=== PATIENT | female | born 1965 | race Caucasian/White ===

== ENCOUNTER → 2017-10-06 08:31 | Outpatient (CLI) | payer OTHER, SELFPAY ==
--- NOTE | 2017-10-06 08:35 | BI_ITS ---
MAMMOGRAPHY - BILATERAL SCREENING REASON FOR EXAM: Female, 52 years old. Routine annual screening examination. PERTINENT HISTORY: Mother with breast cancer. Prior bilateral breast reduction. 2 month history of tenderness in the lower aspect of the right breast. TECHNIQUE: Digital bilateral breast corinne (3D mammographic acquisition) in the CC and MLO projections. 2-D mediolateral oblique (MLO) and craniocaudad (CC) views of both breasts were obtained. CAD: Full Field Digital Mammography with Computer Added Detection was performed. COMPARISON: Comparison is made with prior study dated October 03, 2016 and September 05, 2015. FINDINGS: Breast Composition: There are scattered areas of fibroglandular density. There are no dominant masses or suspicious calcifications. No other significant abnormalities are identified. There has been no significant change since the prior study. BI/SCREENING MAMM (CAD), BILAT IMPRESSION: Stable bilateral screening mammogram. Yearly follow-up mammogram recommended. (A) ASSESSMENT CATEGORY: BIRADS Category 1: Negative. A letter regarding these results will be sent to the patient by the facility within 30 days. Approximately 10% of breast cancers are not detected by mammography. A normal mammogram should not delay biopsy of a clinically suspicious abnormality. [id number] Electronically Signed: Stalin Shelton MD at 12:46 EDT Tel [phone], Service support ,
== END ==
PROVIDERS: Family Provider Physician Assistant; PCP Physician Assistant; Visit Provider Obstetrics & Gynecology
DX: Z12.31 Encounter for screening mammogram for malignant neoplasm of breast (principal)
CPT/HCPCS: 77063; 77067

== ENCOUNTER → 2017-10-06 10:37 | Outpatient (CLI) | payer OTHER, SELFPAY ==
[2017-10-10 14:39] LABS: HPV Reflexed? NOT INDICATED
== END ==
PROVIDERS: Visit Provider Obstetrics & Gynecology
DX: Z12.4 Encounter for screening for malignant neoplasm of cervix (principal)
CPT/HCPCS: 88175; G0145

== ENCOUNTER 2018-09-18 05:32 | Day surgery (SDC) | payer OTHER, SELFPAY ==
[2018-09-18] VITALS (13 sets, daily range): BP systolic 83–141; BP diastolic 54–124; PULSE 77–89; RESP 11–18; TEMP 36.3–36.6; O2SAT 92–99; BMI 44.5
--- NOTE | 2018-09-18 06:11 | PCM.HP.STD ---
Problem List (1) Screening for intestinal cancer Status: Acute History of Present Illness Date of Admission: 09/18/18 The patient is a 53 year old F who presents for screening colonoscopy. She has never had a previous examination. She does not have any personal or family history of colon cancer or colon polyps. She has not had any acute change in her health. No bright red blood per rectum or melena. No change in bowel habits. She does have hypertension on oral medication. She denies history of DVT. Past Medical History Allergies No Known Allergies Allergy (Verified 09/17/18 15:52) Home Medications: Ambulatory Orders Medication Instructions Recorded Albuterol Inhaler [Ventolin Hfa 1 - 2 puff INHALATION Q4H PRN PRN 09/17/18 (SP)] Amoxicillin 2,000 mg PO PRN PRN 09/17/18 Meloxicam [Mobic] 15 mg PO DAILY 09/17/18 Ranitidine HCl [Zantac 75] 75 mg PO BID 09/17/18 Triamterene/Hydrochlorothiazid 1 ea PO DAILY 09/17/18 [Dyazide 37.5-25 Capsule] Smoking Status: Former smoker Review of Systems Constitutional: Denies: Anorexia HEENT: Denies: Difficulty Swallowing Cardiovascular: Denies: Chest Pain Respiratory: Denies: Cough Gastrointestinal: Denies: Abdominal Pain, Hematochezia, Melena Neurological: Denies: Balance problems Endocrine: Denies: Change in Body Habitus VTE Information - Inpt Only VTE Present on Admission: No Patient Problems: Active and Suspected Problems Screening for intestinal cancer (Acute) - Physical Exam General: Alert, Oriented x3, Cooperative, No apparent distress HEENT: Atraumatic Oral: Moist Mucosa Neck: Supple Lungs: Clear to auscultation, Normal air movement Cardiovascular: Regular rate, Regular Rhythm Abdomen: Bowel Sounds Present, Soft, Non Tender, Obese Extremities: No Calf Tenderness Psych/Mental Status: Normal Affect Vital Signs Temp Pulse Resp BP Pulse Ox 97.9 F 89 18 137/86 H 97 09/18/18 05:51 09/18/18 05:51 09/18/18 05:51 09/18/18 05:51 09/18/18 05:51 Oxygen Delivery Method Room Air Weight: 276 lb 0.3 oz Body Mass Index (BMI) 44.5 Laboratory Tests Past 24 Hrs 09/18/18 05:40 Urine Test Pending Assessment/Plan All Active Problems Screening for intestinal cancer (Acute) I am recommending the patient to screening colonoscopy with possible biopsy or polypectomy is indicated. She is aware of the technique, benefits, risks, alternatives. She presents via our open access program today. We will proceed as noted. Sean Grey M.D., F.A.C.S.
[2018-09-18 06:12] LABS: Internal QC Validated? YES +Cl - CLEAR BKGD; Pregnancy, Urine Negative Negative
--- NOTE | 2018-09-23 10:44 | OP.ENDO_ITS ---
09/23/2018 Cynthia Jimenez Re : Colonoscopy procedure for Mahsa Sandra Dear Barbara This procedure was performed on Tuesday, September 18, 2018. My impressions and recommendations are as follows: Impressions : - Non-thrombosed external hemorrhoids, non-thrombosed internal hemorrhoids and internal hemorrhoids that prolapse with straining, but spontaneously regress to the resting position (Grade II) found on digital rectal exam. - Diverticulosis in the entire examined colon. - The examination was otherwise normal. - No specimens collected. Recommendations : - Discharge patient to home. - Resume previous diet. - Continue present medications. - Repeat colonoscopy in 10 years for screening purposes. My findings are described in the full procedure note, which is enclosed. If I can be of further assistance, please feel free to contact me at Doctor phone number(s): Work: . Sincerely, Sean Grey MD 09/18/2018 7:01:24 AM This report has been signed electronically.
== END 2018-09-18 08:10 | disposition home or self-care (01) ==
LOC: EN 05:33 → AC 05:34
PROVIDERS: Anesthesiology; Family Provider Family Medicine; PCP Family Medicine; Referring Provider Surgery; Visit Provider Surgery
PROC: 0DJD8ZZ Inspection of Lower Intestinal Tract, Via Natural or Artificial Opening Endoscopic (ICD-10-PCS; CPT 45378; principal; 2018-09-18 06:25)
DX: Z12.11 Encounter for screening for malignant neoplasm of colon (principal); I10 Essential (primary) hypertension; K64.1 Second degree hemorrhoids; K57.30 Diverticulosis of large intestine without perforation or abscess without bleeding; Z87.891 Personal history of nicotine dependence; Z79.899 Other long term (current) drug therapy
CPT/HCPCS: 45378; 81025; J7120

== ENCOUNTER → 2018-12-11 | Outpatient (CLI) | payer OTHER, SELFPAY ==
[2018-09-18 05:51] VITALS: BMI 44.5
--- NOTE | 2018-12-11 07:43 | BI_ITS ---
MAMMOGRAPHY - BILATERAL SCREENING REASON FOR EXAM: Female, 53 years old. Routine annual screening examination. PERTINENT HISTORY: Mother with breast cancer. History of remote bilateral breast reduction surgery. TECHNIQUE: Digital bilateral breast maikol (3D mammographic acquisition) in the CC and MLO projections. 2-D mediolateral oblique (MLO) and craniocaudad (CC) views of both breasts were obtained. CAD: Full Field Digital Mammography with Computer Added Detection was performed. COMPARISON: Comparison is made with prior examination dated October 06, 2017 and October 03, 2016. FINDINGS: Breast Composition: There are scattered areas of fibroglandular density. There are no dominant masses or suspicious calcifications. Asymmetrical density in the deep upper lateral portion of the left breast. Correlation with ultrasound is recommended. No other significant abnormalities are identified. BI/SCREEN MAMM (CAD) W/MAIKOL BILAT IMPRESSION: Asymmetrical density in the deep upper lateral portion of the left breast as described. Correlation with ultrasound is recommended. ASSESSMENT CATEGORY: BIRADS Category 0: Incomplete. Need additional imaging evaluation. A letter regarding these results will be sent to the patient by the facility within 30 days. Approximately 10% of breast cancers are not detected by mammography. A normal mammogram should not delay biopsy of a clinically suspicious abnormality. [id number] Electronically Signed: Stalin Shelton, at 11:17 EDT , Service support ,
== END | disposition home or self-care (01) ==
LOC: OPBI 07:42
PROVIDERS: Family Provider Family Medicine; PCP Family Medicine; Referring Provider Obstetrics & Gynecology; Visit Provider Obstetrics & Gynecology
DX: Z12.31 Encounter for screening mammogram for malignant neoplasm of breast (principal)
CPT/HCPCS: 77063; 77067

== ENCOUNTER → 2018-12-16 | Outpatient (CLI) | payer OTHER, SELFPAY ==
[2018-09-18 05:51] VITALS: BMI 44.5
--- NOTE | 2018-12-16 14:46 | US_ITS ---
STUDY: ULTRASOUND BREAST - LEFT REASON FOR EXAM: Female, 53 years old. Abnormal screening mammogram. TECHNIQUE: Axial and longitudinal images of the LEFT breast were performed with a high resolution ultrasound transducer. COMPARISON: Comparison is made with prior mammogram dated December 11, 2018. FINDINGS: LEFT Breast: This 1.3 cm x 1.6 cm x 0.6 cm irregular hypoechoic solid nodule at the 3:00 position of the breast at 12 cm from nipple. A biopsy is recommended for further evaluation. US/Breast Limited Unilateral IMPRESSION: 1.3 cm x 1.6 cm x 0.6 cm hypoechoic irregular solid nodule at the 3:00 position breast at 12 cm from nipple as described. A biopsy is recommended. ASSESSMENT CATEGORY: BIRADS Category 4: Suspicious - Biopsy Should Be Considered. A letter regarding these results will be sent to the patient by the facility within 30 days. Electronically Signed: Stalin Shelton, at 9:49 EDT , Service support ,
== END | disposition home or self-care (01) ==
LOC: OPUS 14:44
PROVIDERS: Family Provider Family Medicine; PCP Family Medicine; Referring Provider Obstetrics & Gynecology; Visit Provider Obstetrics & Gynecology
DX: R92.2 Inconclusive mammogram (principal)
CPT/HCPCS: 76642

== ENCOUNTER → 2018-12-25 13:25 | Outpatient (CLI) | payer OTHER, SELFPAY ==
[2018-12-25 13:37] VITALS: BMI 44.5
== END ==
PROVIDERS: Family Provider Family Medicine; PCP Family Medicine; Referring Provider Surgery; Visit Provider Surgery
DX: R92.8 Other abnormal and inconclusive findings on diagnostic imaging of breast (principal)

== ENCOUNTER → 2018-12-25 | Outpatient (CLI) | payer OTHER, SELFPAY ==
--- NOTE | 2018-12-25 13:25 | BRBX_PTH ---
PATIENT: DIVINE LOUIS LOC: [facility] U#:[id number] AGE/SX: 53/F ROOM: RE12/25/[address]: Dr. Sean Grey MD : 1965 BED: DIS: 12/25/2018 SPEC #: [id number] RECD: 12/25/18 17:04 STATUS: HAY REPatsy #: [id number] DISHA: 12/25/18 13:[address]: Sean Grey DEPT: SURGICAL PATHOLOGY RECD BY: Paty Vines ENTERED: 12/28/18 09:36 SP TYPE: BREAST BX OTHR DR: Dr. Cynthia Jimenez MD Tissues: Left breast, NOS Procedures: Surgery Specimen Level IV HEADER OPERATION: Left breast biopsy PRE-OP DIAGNOSIS: Left breast abnormal ultrasound TISSUE SUBMITTED: Left breast tissue MICROSCOPIC DIAGNOSIS Left breast, core biopsy: Focal intraductal hyperplasia without atypia. Mild fibrocystic change. Focal Banal microcalcifications. No evidence of malignancy. AM:emiliano 12/29/18 MICROSCOPIC DESCRIPTION Slides are reviewed. GROSS DESCRIPTION Received in fixative is one container labeled with the patient's name and designated left breast. The specimen consists of multiple elongated fragments of fletcher-yellow fibroadipose tissue that in aggregate measure 2 x 0.2 x 0.1 cm. The entire specimen is submitted in one cassette. / SJ:emiliano 12/28/18 TC:5 CPT: 99799
[2018-12-25 13:37] VITALS: BMI 44.5
== END | disposition home or self-care (01) ==
LOC: LABSPEC 12-28 08:26
PROVIDERS: Family Provider Family Medicine; PCP Family Medicine; Referring Provider Surgery; Visit Provider Surgery
DX: R92.8 Other abnormal and inconclusive findings on diagnostic imaging of breast (principal)
CPT/HCPCS: 88305

== ENCOUNTER → 2018-12-25 | Outpatient (CLI) | payer OTHER, SELFPAY ==
[2018-12-25 13:37] VITALS: BMI 44.5
--- NOTE | 2018-12-25 14:13 | BI_ITS ---
MAMMOGRAPHY - UNILATERAL DIAGNOSTIC: LEFT BREAST REASON FOR EXAM: Female, 53 years old. Status post ultrasound-guided breast biopsy of a nodular density in the upper lateral portion of the left breast. PERTINENT HISTORY: Abnormal screening mammogram. TECHNIQUE: Digital unilateral breast corinne (3D mammographic acquisition) in the CC and MLO projections. 2-D mediolateral oblique (MLO) and craniocaudad (CC) views of both breasts were obtained. CAD: Full Field Digital Mammography with Computer Added Detection was performed. COMPARISON: Comparison is made with prior mammogram dated December 11, 2018 and prior ultrasound the left breast dated December 16, 2018. FINDINGS: Breast Composition: There are scattered areas of fibroglandular density. There are no dominant masses or suspicious calcifications. A tissue clip marker is seen within the nodular density in the upper lateral aspect of the left breast. No other significant abnormalities are identified. BI/DIAG MAMM W/CAD, UNILAT IMPRESSION: Status post ultrasound-guided breast biopsy. A tissue clip marker is seen at the biopsy site. ASSESSMENT CATEGORY: BIRADS Category 2: Benign. A letter regarding these results will be sent to the patient by the facility within 30 days. Approximately 10% of breast cancers are not detected by mammography. A normal mammogram should not delay biopsy of a clinically suspicious abnormality. Electronically Signed: Stalin Shelton, at 15:20 EDT , Service support ,
== END | disposition home or self-care (01) ==
LOC: OPBI 14:12
PROVIDERS: Family Provider Family Medicine; PCP Family Medicine; Referring Provider Surgery; Visit Provider Surgery
DX: R92.8 Other abnormal and inconclusive findings on diagnostic imaging of breast (principal)
CPT/HCPCS: 77065

== ENCOUNTER → 2019-07-16 08:43 | Outpatient (CLI) | payer OTHER, SELFPAY ==
[2018-12-25 13:37] VITALS: BMI 44.5
--- NOTE | 2019-07-16 08:44 | BI_ITS ---
MAMMOGRAPHY - UNILATERAL DIAGNOSTIC: LEFT BREAST REASON FOR EXAM: Female, 54 years old. Six-month follow-up for left breast biopsy. PERTINENT HISTORY: Mother with breast cancer. History of bilateral breast reduction surgery. Left ultrasound-guided breast biopsy. TECHNIQUE: Digital unilateral breast corinne (3D mammographic acquisition) in the CC and MLO projections. 2-D mediolateral oblique (MLO) and craniocaudad (CC) views of both breasts were obtained. CAD: Full Field Digital Mammography with Computer Added Detection was performed. COMPARISON: Comparison is made with prior study dated December 11, 2018 and December 25, 2018. FINDINGS: Breast Composition: There are scattered areas of fibroglandular density. There are no dominant masses or suspicious calcifications. A tissue clip marker is once again seen within a small nodular density in the upper lateral portion of the left breast. No other significant abnormalities are identified. There has been no significant change since the prior study. BI/DIAG MAMM W/CAD, UNILAT IMPRESSION: Stable unilateral diagnostic mammogram. One year follow-up mammogram recommended. (A) ASSESSMENT CATEGORY: BIRADS Category 2: Benign. A letter regarding these results will be sent to the patient by the facility within 30 days. Approximately 10% of breast cancers are not detected by mammography. A normal mammogram should not delay biopsy of a clinically suspicious abnormality. Electronically Signed: Stalin Shelton, at 11:19 EDT , Service support ,
== END ==
PROVIDERS: PCP Family Medicine; Referring Provider Surgery; Visit Provider Surgery
DX: R92.8 Other abnormal and inconclusive findings on diagnostic imaging of breast (principal); Z98.890 Other specified postprocedural states
CPT/HCPCS: 77061; 77065; G0279

== ENCOUNTER → 2019-12-29 16:02 | Outpatient (CLI) | payer OTHER, SELFPAY ==
[2018-12-25 13:37] VITALS: BMI 44.5
--- NOTE | 2019-12-29 16:04 | BI_ITS ---
MAMMOGRAPHY - BILATERAL SCREENING REASON FOR EXAM: Female, 54 years old. Routine annual screening examination. PERTINENT HISTORY: Mother with breast cancer. History of bilateral breast reduction surgery. TECHNIQUE: Digital bilateral breast maikol (3D mammographic acquisition) in the CC and MLO projections. 2-D mediolateral oblique (MLO) and craniocaudad (CC) views of both breasts were obtained. CAD: Full Field Digital Mammography with Computer Added Detection was performed. COMPARISON: Comparison is made with prior study dated 12/11/2018 and 10/06/2017. FINDINGS: Breast Composition: The breasts are heterogeneously dense, which may obscure small masses. There is a 7 mm x 5 mm well-defined nodule in the inferior medial aspect of the left breast. Correlation with ultrasound is recommended. A tissue clip marker is seen in the upper-outer quadrant of the left breast. This is unchanged. Stable small benign-appearing bilateral axillary lymph nodes. No other significant abnormalities are identified. BI/SCREEN MAMM (CAD) W/MAIKOL BILAT IMPRESSION: 7 mm x 5 mm well-defined nodule in the inferior medial aspect of the left breast as described. Correlation with ultrasound is recommended. ASSESSMENT CATEGORY: BIRADS Category 0: Incomplete. Need additional imaging evaluation. A letter regarding these results will be sent to the patient by the facility within 30 days. Approximately 10% of breast cancers are not detected by mammography. A normal mammogram should not delay biopsy of a clinically suspicious abnormality. [id number] Electronically Signed: Stalin Shelton, at 11:20 EDT , Service support ,
== END ==
PROVIDERS: Referring Provider Student in an Organized Health Care Education/Training Program; Visit Provider Student in an Organized Health Care Education/Training Program
DX: Z12.31 Encounter for screening mammogram for malignant neoplasm of breast (principal)
CPT/HCPCS: 77063; 77067

== ENCOUNTER → 2020-01-05 08:49 | Outpatient (CLI) | payer OTHER, SELFPAY ==
[2018-12-25 13:37] VITALS: BMI 44.5
--- NOTE | 2020-01-05 08:49 | US_ITS ---
STUDY: ULTRASOUND BREAST - LEFT REASON FOR EXAM: Female, 54 years old. Abnormal screening mammogram. TECHNIQUE: Axial and longitudinal images of the LEFT breast were performed with a high resolution ultrasound transducer. # OF IMAGES: 13 COMPARISON: Comparison is made with prior mammogram dated 12/29/2019 and prior ultrasound of the left breast dated 12/16/2018. FINDINGS: LEFT Breast: The inferior medial quadrant of the left breast was examined by ultrasound. There is a 6 mm x 6 mm x 5 mm well-defined hypoechoic solid nodule at the 9 o''clock position of the breast at 4 cm from the nipple. A biopsy is recommended. US/Breast Limited Unilateral IMPRESSION: The mammographic abnormality corresponds to a 6 mm x 6 mm x 5 mm well-defined hypoechoic solid nodule at the 9 o''clock position of the breast at 4 cm from the nipple. A biopsy is recommended. ASSESSMENT CATEGORY: BIRADS Category 4: Suspicious - Biopsy Should Be Considered. A letter regarding these results will be sent to the patient by the facility within 30 days. Electronically Signed: Stalin Shelton, at 14:55 EDT , Service support ,
== END ==
PROVIDERS: Referring Provider Student in an Organized Health Care Education/Training Program; Visit Provider Student in an Organized Health Care Education/Training Program
DX: N63.20 Unspecified lump in the left breast, unspecified quadrant (principal)
CPT/HCPCS: 76642

== ENCOUNTER → 2020-01-10 15:20 | Outpatient (CLI) | payer OTHER, SELFPAY ==
[2020-01-10 14:59] VITALS: BMI 46.0
--- NOTE | 2020-01-10 15:20 | BRBX_PTH ---
PATIENT: DIVINE LOUIS LOC: [facility] U#:[id number] AGE/SX: 59/F ROOM: RE01/10/[address]: Dr. Sean Grey MD : 1965 BED: DIS: SPEC #: [id number] RECD: 01/10/20 16:03 STATUS: HAY HERVE #: [id number] DISHA: 01/10/20 15:[address]: Sean Grey DEPT: SURGICAL PATHOLOGY RECD BY: Paty Vines ENTERED: 01/11/20 13:00 SP TYPE: BREAST BX OTHR DR: No Primary Care Phys Tissues: Left breast, NOS Procedures: Surgery Specimen Level IV HEADER OPERATION: Left breast biopsy PRE-OP DIAGNOSIS: Abnormal left breast ultrasound TISSUE SUBMITTED: Left breast tissue MICROSCOPIC DIAGNOSIS Left breast, core biopsy: Nonproliferative fibrocystic change. No evidence of malignancy. AM:emiliano 10/21/20 MICROSCOPIC DESCRIPTION Slides are reviewed. GROSS DESCRIPTION Received in fixative is one container labeled with the patient name and designated left breast. The specimen consists of multiple elongated fragments of fletcher soft tissue that in aggregate measure 1.5 x 0.1 x 0.1 cm. The entire specimen is submitted in one cassette. / SJ:rg 01/11/20 TC:5 CPT: 14114
== END ==
PROVIDERS: Visit Provider Surgery
DX: R92.8 Other abnormal and inconclusive findings on diagnostic imaging of breast (principal)
CPT/HCPCS: 88305

== ENCOUNTER → 2020-12-29 06:56 | Outpatient (CLI) | payer OTHER, SELFPAY ==
--- NOTE | 2020-12-29 07:12 | BI_ITS ---
MAMMOGRAPHY - BILATERAL SCREENING 3-D TOMOSYNTHESIS REASON FOR EXAM: Female, 55 years old. SCREENING PERTINENT HISTORY: No significant family history. TECHNIQUE: 2-D mammograms and 3-D Tomosynthesis of the breast (s) were performed. CAD was performed. COMPARISON: 12/29/2019 FINDINGS: The breast composition is heterogeneously dense that can obscure small breast masses. Scattered benign calcifications are seen. No dominant mass right breast. 5 mm oval circumscribed equal density mass in the lower inner quadrant of the left breast at posterior depth and focal compression views recommended for further evaluation. No suspicious calcifications.. No architectural distortion is identified. There is no skin thickening or retraction. BI/SCRN MAMM (CAD)W/MAIKOL BILAT IMPRESSION: 5 mm oval circumscribed equal density mass in the lower inner quadrant left breast at posterior depth and focal compression views are recommended for further evaluation. ASSESSMENT CATEGORY: BIRADS Category 0: Incomplete. Need additional imaging evaluation as above. A letter regarding these results will be sent to the patient by the facility within 30 days. FOLLOW UP RECOMMENDATION: Additional imaging recommended as above. (E) Approximately 10% of breast cancers are not detected by mammography. A normal mammogram should not delay biopsy of a clinically suspicious abnormality. Electronically Signed: Obdulio Celeste MD at 8:54 EDT Tel , Service support ,
== END ==
DX: Z12.31 Encounter for screening mammogram for malignant neoplasm of breast (principal)
CPT/HCPCS: 77063; 77067

== ENCOUNTER → 2021-01-02 08:49 | Outpatient (CLI) | payer OTHER, SELFPAY ==
--- NOTE | 2021-01-02 09:22 | BI_ITS ---
MAMMOGRAPHY - UNILATERAL DIAGNOSTIC: LEFT BREAST REASON FOR EXAM: Female, 55 years old. Abnormal screening mammogram. PERTINENT HISTORY: Non-contributory. TECHNIQUE: Compression spot views of the left breast were obtained. CAD: Full Field Digital Mammography with Computer Added Detection was performed. COMPARISON: Comparison is made with prior mammogram dated 12/29/2020. FINDINGS: Breast Composition: There are scattered areas of fibroglandular density. Persistent 4 mm well-defined nodule in the lower inner quadrant of the left breast. Correlation with ultrasound is recommended. No other significant abnormalities are identified. BI/DIAG MAMM W/CAD, UNILAT IMPRESSION: Persistent 4 mm well-defined nodule in the inferior medial portion of the left breast. Correlation with ultrasound is recommended. ASSESSMENT CATEGORY: BIRADS Category 0: Incomplete. Need additional imaging evaluation. A letter regarding these results will be sent to the patient by the facility within 30 days. Approximately 10% of breast cancers are not detected by mammography. A normal mammogram should not delay biopsy of a clinically suspicious abnormality. Electronically Signed: Stalin Shelton MD at 12:38 EDT , Service support ,
--- NOTE | 2021-01-02 09:22 | US_ITS ---
STUDY: ULTRASOUND BREAST - LEFT REASON FOR EXAM: Female, 55 years old. Abnormal mammogram. TECHNIQUE: Axial and longitudinal images of the LEFT breast were performed with a high resolution ultrasound transducer. # OF IMAGES: 37 COMPARISON: Comparison is made with prior mammogram done earlier in the day. Comparison is also made with prior ultrasound of the left breast dated 01/05/2020. FINDINGS: LEFT Breast: Once again, there is a 5 mm x 5 mm x 4 mm well-defined hypoechoic solid nodule at the 8 o''clock position the breast at 3 cm from nipple. This is essentially unchanged as compared to prior study. Biopsy recommended. US/Breast Limited Unilateral IMPRESSION: Stable 5 mm x 5 mm x 4 mm well-defined hypoechoic solid nodule as described. A biopsy is recommended. ASSESSMENT CATEGORY: BIRADS Category 4: Suspicious - Biopsy Should Be Considered. A letter regarding these results will be sent to the patient by the facility within 30 days. Electronically Signed: Stalin Shelton MD at 13:09 EDT , Service support ,
== END ==
DX: R92.8 Other abnormal and inconclusive findings on diagnostic imaging of breast (principal)
CPT/HCPCS: 76642; 77065

== ENCOUNTER → 2021-01-08 11:22 | Outpatient (CLI) | payer OTHER, SELFPAY ==
--- NOTE | 2021-01-08 11:48 | PCM.HP.BLA ---
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 Is patient in pain?: No Allergies No Known Allergies Allergy (Verified 01/05/21 12:05) Medications albuterol sulfate 1 - 2 puff INHALATION Q4H PRN PRN 09/17/18 [History Confirmed 01/05/21] meloxicam 15 mg PO DAILY 09/17/18 [History Confirmed 01/05/21] triamterene-hydrochlorothiazid 1 ea PO DAILY 09/17/18 [History Confirmed 01/05/21] fluticasone propionate 50 mcg/actuation nasal spray,suspension 1 spray INTRANASAL DAILY 12/22/18 [History Confirmed 01/05/21] multivitamin 1 cap PO DAILY 12/22/18 [History Confirmed 01/05/21] Is last menstrual period known: No Post menopausal: Yes Patient : No PFSH Medical History Abnormal mammogram of left breast Abnormal ultrasound of breast Asthma HTN (hypertension) Surgical History History of colonoscopy History of left breast biopsy (~11/2018) History of umbilical hernia repair S/P section Status post breast reduction Status post right knee replacement Family History Mother Breast cancer dx age 48 Father Heart disease Social History Smoking Status: Former smoker alcohol intake: current alcohol intake frequency: a few times a month HPI HPI HPI: DIVINE LOUIS, is a 55 F who presents to the office today for ongoing breast care evaluation. Her most recent mammogram and ultrasound identified a 5 x 5 x 4 mm well-defined hypoechoic solid nodule left breast 8 o'clock position +3 cm. BI-RADS Category 4. As noted in previous notes below she has had previous breast biopsies that similarly were benign. 55-year-old female. G3, . Menarche at age 14. First child was born when she was 26. She did breast-feed. Family history notable for mother with breast cancer on 2 different occasions. January 02, 2021 MAMMOGRAPHY - UNILATERAL DIAGNOSTIC: LEFT BREAST REASON FOR EXAM: Female, 55 years old. Abnormal screening mammogram. PERTINENT HISTORY: Non-contributory. TECHNIQUE: Compression spot views of the left breast were obtained. CAD: Full Field Digital Mammography with Computer Added Detection was performed. COMPARISON: Comparison is made with prior mammogram dated 12/29/2020. FINDINGS: Breast Composition: There are scattered areas of fibroglandular density. Persistent 4 mm well-defined nodule in the lower inner quadrant of the left breast. Correlation with ultrasound is recommended. No other significant abnormalities are identified. BI/DIAG MAMM W/CAD, UNILAT IMPRESSION: Persistent 4 mm well-defined nodule in the inferior medial portion of the left breast. Correlation with ultrasound is recommended. ASSESSMENT CATEGORY: BIRADS Category 0: Incomplete. Need additional imaging evaluation. A letter regarding these results will be sent to the patient by the facility within 30 days. Approximately 10% of breast cancers are not detected by mammography. A normal mammogram should not delay biopsy of a clinically suspicious abnormality. Electronically Signed: Stalin Shelton MD at 12:38 EDT , Service support , January 02, 2021 STUDY: ULTRASOUND BREAST - LEFT REASON FOR EXAM: Female, 55 years old. Abnormal mammogram. TECHNIQUE: Axial and longitudinal images of the LEFT breast were performed with a high resolution ultrasound transducer. # OF IMAGES: 37 COMPARISON: Comparison is made with prior mammogram done earlier in the day. Comparison is also made with prior ultrasound of the left breast dated 01/05/2020. FINDINGS: LEFT Breast: Once again, there is a 5 mm x 5 mm x 4 mm well-defined hypoechoic solid nodule at the 8 o''clock position the breast at 3 cm from nipple. This is essentially unchanged as compared to prior study. Biopsy recommended. US/Breast Limited Unilateral IMPRESSION: Stable 5 mm x 5 mm x 4 mm well-defined hypoechoic solid nodule as described. A biopsy is recommended. ASSESSMENT CATEGORY: BIRADS Category 4: Suspicious - Biopsy Should Be Considered. A letter regarding these results will be sent to the patient by the facility within 30 days. Electronically Signed: Stalin Shelton MD at 13:09 EDT , Service support , My previous notes from January 10, 2020 reflect the following HPI: DIVINE LOUIS, is a 54 F who presents to the office today for surgical consultation regarding an abnormal left mammogram and breast ultrasound. 1 year ago I assisted her with her left breast 3 o'clock position +12 cm lesion which on ultrasound biopsy ended up being benign. On January 04 left breast ultrasound shows a 6 x 6 x 5 mm hypoechoic solid nodule 9 o'clock position +4 cm. This is in the opposite location of the left breast. She is remained asymptomatic. Her screening mammography of December 29, 2019 also performed at the [facility] did not detect any focal findings on the right. It demonstrated the small lesion medial left. Approximately 2004 is when the patient had breast reduction surgery. My previous notes reflect the following. My previous notes from a year ago reflect the following. I performed an ultrasound-guided needle core biopsy left breast 3 o'clock position +12 cm. Pathology was benign and confirmatory mammogram demonstrated the clip to be in good position. December 25, 2018 Ultrasound-guided needle core biopsy of the left breast 3 o'clock position +12 cm Left breast, core biopsy:Focal intraductal hyperplasia without atypia.Mild fibrocystic change.Focal Banal microcalcifications.No evidence of malignancy Exam Chest Other: Bilateral breasts demonstrate post reduction incisions. They are well matured from 17 years prior. Diffuse tenderness no focally concerning masses. No axillary clavicular adenopathy Assessment and Plan Assessment and Plan (1) Abnormal ultrasound of breast: Status: Acute (2) Abnormal mammogram of left breast: Status: Acute Plan - Dr. Sean Grey MD: I did attempt to do an ultrasound-guided needle core biopsy lower inner left breast lesion. Informed consent was obtained the breast was prepped I used ultrasound I used 1% lidocaine I even advance the 40-gauge Monopty needle however I was not comfortable with the angle of approach did not feel I can get clean access to the lesion without potentially interfering with the chest wall is a backstop. I aborted the procedure. Little Steri-Strip Telfa applied. We will subsequently arrange for a stereotactic needle core lower inner left breast biopsy. She is always had her previous biopsies done with ultrasound. She is agreeable to scheduling and proceeding as noted. Sean Grey M.D., F.A.C.S. I have re-examined the patient. There are no clinical changes since date of exam.
--- NOTE | 2021-01-08 12:20 | BRBX_PTH ---
PATIENT: DIVINE LOUIS LOC: [facility] U#:[id number] AGE/SX: 59/F ROOM: RE01/08/[address]: Dr. Sean Grey MD : 1965 BED: DIS: SPEC #: [id number] RECD: 01/08/21 13:13 STATUS: HAY HERVE #: [id number] DISHA: 01/08/21 12:[address]: Sean Grey DEPT: SURGICAL PATHOLOGY RECD BY: Macy Ibanez ENTERED: 01/08/21 13:44 SP TYPE: BREAST BX OTHR DR: No Primary Care Phys Tissues: Left breast, NOS Procedures: Surgery Specimen Level IV HEADER OPERATION: Left breast stereotactic needle core biopsy PRE-OP DIAGNOSIS: 5 x 5 x 4 mm density TISSUE SUBMITTED: Left breast ISCHEMIC TIME: 1 minute FIXATION TIME: 7 hours MICROSCOPIC DIAGNOSIS Left breast, stereotactic needle core biopsy: Fragments of fibroadipose tissue with focal minimal chronic inflammation and a minute non-necrotizing granuloma formation. Negative for atypia or malignancy. See comment. SHAREE:emiliano 01/09/2021 COMMENT Breast tissue is not identified in the specimen. Correlation with clinical, radiologic findings and appropriate follow up are necessary. Please make reference to previous specimens ([id number]) left breast, core biopsy with diagnosis of ?focal intraductal hyperplasia without atypia and mild fibrocystic changes? and ([id number]) left breast, core biopsy with diagnosis of ?nonproliferative fibrocystic change.? MICROSCOPIC DESCRIPTION Slides are reviewed. GROSS DESCRIPTION Received is one container labeled with the patient's name and not further designated. The specimen consists of multiple irregular and elongated fragments of yellow-fletcher soft tissue that in aggregate measure 5 x 3 x 0.2 cm. The specimen is totally submitted in two cassettes. / AM:emiliano 01/08/21 TC:3 CPT: 52157
--- NOTE | 2021-01-08 12:31 | PCM.OPRPT ---
Problems Associated Problem List Diagnoses (1) Abnormal mammogram of left breast: Report of Operation Date of Procedure: 01/08/21 Pre-Operative Diagnosis: Density lower inner left breast Post-Operative Diagnosis: Same Surgery/Procedure Performed:: Stereotactic needle core biopsy lower inner left breast Description of Surgical Findings:: Timeout and informed consent was obtained. The patient was taken the mammogram suite. She was placed prone on the table. The left breast was placed in the medial lateral view. Several images were required until what was felt to be the density was identified. Stereotactic images were obtained. Digital information was obtained on a single target site after I swapped the 0 degree image for the second image. The breast was prepped with Betadine. 1% lidocaine was used as a local anesthetic. Total 10 cc was used. A small stab incision was created. An 8 gauge resolved needle was advanced to prefire depth. Prefire films were obtained. The density already much less specific. The device was fired. 10 cores were obtained. A small dog bone marking clip was left in place. On fast view demonstrated positioning with no evidence of residual density. She was released from the device and pressure was held for hemostasis. The specimens were immediately transferred to formalin for analysis. She tolerated the procedure well no apparent complication. Subsequent follow-up CBC and mediolateral views were obtained. Sean Grey M.D., F.A.C.S. Surgeon: Sean Grey Type of Anesthesia: Local
== END ==
PROVIDERS: Referring Provider Surgery; Visit Provider Surgery
DX: R92.8 Other abnormal and inconclusive findings on diagnostic imaging of breast (principal)
CPT/HCPCS: 19081; 88305; J7050

== ENCOUNTER → 2022-01-03 | Outpatient (CLI) | payer OTHER, SELFPAY ==
--- NOTE | 2022-01-03 07:51 | BI_ITS ---
MAMMOGRAPHY - BILATERAL SCREENING REASON FOR EXAM: Female, 56 years old. Routine annual screening examination. PERTINENT HISTORY: Mother with breast cancer. Aunt with breast cancer. Prior left ultrasound guided and stereotactic biopsy. Prior bilateral breast reduction surgery. TECHNIQUE: Digital bilateral breast maikol (3D mammographic acquisition) in the CC and MLO projections. 2-D mediolateral oblique (MLO) and craniocaudad (CC) views of both breasts were obtained. CAD: Full Field Digital Mammography with Computer Added Detection was performed. COMPARISON: Comparison is made with prior study 12/29/2020 and 01/02/2021. FINDINGS: Breast Composition: There are scattered areas of fibroglandular density. There are no dominant masses or suspicious calcifications. A tissue clip marker is seen in the upper lateral portion of the left breast as well as in the inferior deep medial portion of the left breast. This is new as compared to prior study. Minimal increased markings are seen in the inferior medial portion of the breast at the site of the biopsy. No other significant abnormalities are identified. There has been no significant change since the prior study. BI/SCRN MAMM (CAD)W/MAIKOL BILAT IMPRESSION: Stable bilateral screening mammogram. Yearly follow-up mammogram recommended. (A) ASSESSMENT CATEGORY: BIRADS Category 2: Benign. A letter regarding these results will be sent to the patient by the facility within 30 days. Approximately 10% of breast cancers are not detected by mammography. A normal mammogram should not delay biopsy of a clinically suspicious abnormality. [id number] Electronically Signed: Stalin Shelton MD at 9:10 EDT ,
== END | disposition home or self-care (01) ==
LOC: OPBI 07:50
PROVIDERS: Visit Provider Surgery
DX: Z12.31 Encounter for screening mammogram for malignant neoplasm of breast (principal); Z80.3 Family history of malignant neoplasm of breast
CPT/HCPCS: 77063; 77067

== ENCOUNTER → 2022-11-28 | Outpatient (CLI) | payer OTHER, SELFPAY ==
--- NOTE | 2022-11-28 11:40 | BI_ITS ---
MAMMOGRAPHY - BILATERAL SCREENING REASON FOR EXAM: Female, 57 years old. Routine annual screening examination. PERTINENT HISTORY: Mother with breast cancer. Aunt with breast cancer. History of prior bilateral breast reduction surgery and left stereotactic breast biopsy. TECHNIQUE: Digital bilateral breast maikol (3D mammographic acquisition) in the CC and MLO projections. 2-D mediolateral oblique (MLO) and craniocaudad (CC) views of both breasts were obtained. CAD: Full Field Digital Mammography with Computer Added Detection was performed. COMPARISON: Comparison is made with prior study of January 03, 2022 and January 02, 2021. FINDINGS: Breast Composition: There are scattered areas of fibroglandular density. There are no dominant masses or suspicious calcifications. A tissue clip marker is seen in the upper outer aspect of the left breast as well as in the slightly inferior medial aspect of the left breast. Stable small benign-appearing bilateral axillary No other significant abnormalities are identified. There has been no significant change since the prior study. BI/SCRN MAMM (CAD)W/MAIKOL BILAT IMPRESSION: Stable bilateral screening mammogram. Yearly follow-up mammogram recommended. (A) ASSESSMENT CATEGORY: BIRADS Category 2: Benign. A letter regarding these results will be sent to the patient by the facility within 30 days. Approximately 10% of breast cancers are not detected by mammography. A normal mammogram should not delay biopsy of a clinically suspicious abnormality. [id number] Electronically Signed: Stalin Shelton MD at 13:42 EDT ,
== END | disposition home or self-care (01) ==
LOC: OPBI 11:39
PROVIDERS: Referring Provider Surgery; Visit Provider Surgery
DX: Z12.31 Encounter for screening mammogram for malignant neoplasm of breast (principal)
CPT/HCPCS: 77063; 77067

== ENCOUNTER → 2024-02-23 | Outpatient (CLI) | payer OTHER, SELFPAY ==
--- NOTE | 2024-02-23 08:07 | BI_ITS ---
MAMMOGRAPHY - BILATERAL SCREENING REASON FOR EXAM: Female, 58 years old. Routine annual screening examination. PERTINENT HISTORY: Mother with breast cancer. Aunt with breast cancer. History of prior bilateral breast reduction surgery as well as left stereotactic and left ultrasound-guided breast biopsies. TECHNIQUE: Digital bilateral breast maikol (3D mammographic acquisition) in the CC and MLO projections. 2-D mediolateral oblique (MLO) and craniocaudad (CC) views of both breasts were obtained. CAD: Full Field Digital Mammography with Computer Added Detection was performed. COMPARISON: Comparison is made with prior study November 28, 2022 and January 03, 2022. FINDINGS: Breast Composition: There are scattered areas of fibroglandular density. There are no dominant masses or suspicious calcifications. Interstitial clip marker is seen in the upper outer aspect of the left breast as well as in the slightly inferior medial aspect of the left breast. Stable bilateral fat containing axillary lymph nodes. No other significant abnormalities are identified. There has been no significant change since the prior study. BI/SCRN MAMM (CAD)W/MAIKOL BILAT IMPRESSION: Stable bilateral screening mammogram. Yearly follow-up mammogram recommended. (A) ASSESSMENT CATEGORY: BIRADS Category 2: Benign. A letter regarding these results will be sent to the patient by the facility within 30 days. Approximately 10% of breast cancers are not detected by mammography. A normal mammogram should not delay biopsy of a clinically suspicious abnormality. [id number] Electronically Signed: Stalin Shelton MD at 10:12 EST ,
== END | disposition home or self-care (01) ==
PROVIDERS: PCP Internal Medicine
DX: Z12.31 Encounter for screening mammogram for malignant neoplasm of breast (principal)
CPT/HCPCS: 77063; 77067